=== PATIENT | female | born 1945 | race Caucasian/White ===

== ENCOUNTER 2020-04-10 10:48 | Outpatient (CLI) | payer MEDICARE, OTHER, SELFPAY ==
--- NOTE | ~2020-04-10 | US_ITS ---
EXAMINATION: US carotid duplex BI DATE: 04/10/2020 11:28 INDICATION: Bilateral carotid artery stenosis. TECHNIQUE: Grayscale, color Doppler, and pulsed Doppler images of the cervical carotid arteries were obtained. The degree of vessel stenosis is placed in one of the following categories: normal, <50%, 5 0-69%, >=70% but less than near-occlusion, near-occlusion, or total occlusion. Note that percent sten osis relative to normal distal artery lumen diameter is indirectly measured from velocity measurement s as described by Dixon, et al. Radiology 2003; 229:340-346. COMPARISON: Ultrasound 05/07/2016 FINDINGS: RIGHT: The right common carotid artery (CCA) peak systolic velocity (PSV) is 93 cm/s. The right internal car otid artery (ICA) PSV is 83 cm/s. The right ICA end-diastolic velocity (EDV) is 30 cm/s. The right IC A/CCA PSV ratio is 0.9. Grayscale and color Doppler images yield an estimate of <50% diameter reducti on from plaque in the ICA. There is antegrade flow in the right vertebral artery. LEFT: The left CCA PSV is 78 cm/s. The left ICA PSV is 114 cm/s. The left ICA EDV is 32 cm/s. The left ICA/ CCA PSV ratio is 1.5. Grayscale and color Doppler images yield an estimate of <50% diameter reduction from plaque in the ICA. There is antegrade flow in the left vertebral artery. IMPRESSION: 1. <50% stenosis in the right internal carotid artery. 2. <50% stenosis in the left internal carotid artery. Reviewed, dictated and finalized at location A.
== END 2020-04-10 10:49 | disposition home or self-care (01) ==
PROVIDERS: PCP Internal Medicine; Visit Provider Specialist
DX: I65.23 Occlusion and stenosis of bilateral carotid arteries (principal)
CPT/HCPCS: 93880

== ENCOUNTER 2020-06-07 14:22 | Emergency (ER) | payer MEDICARE, OTHER, SELFPAY ==
--- NOTE | ~2020-06-07 | XR_ITS ---
XR hand RT min 3V 06/07/2020 15:09 Indication: Right hand pain after trauma Procedure: 3 views right hand Comparison: 01/20/2011 Findings: There is moderate soft tissue swelling dorsal to the metacarpals. There is advanced osteoar thritis of the first CMC joint. There is mild-moderate polyarticular osteoarthritis of the interphala ngeal joints as well as the first, second and third MCP joints. No acute fracture or traumatic malali gnment. Impression: 1: No acute fracture. Reviewed, dictated and finalized at location A. Impression: 1: No acute fracture.
[2020-06-07 14:35] VITALS: BP 170/100; PULSE 89; RESP 14; TEMP 36.3; O2SAT 98
--- NOTE | 2020-06-07 14:50 | ED.UPPEXIN ---
HPI - Extremity Injury (Upper) General Chief Complaint: Extremity Injury, Upper Stated Complaint: R hand injury Time Seen by Provider: 06/07/20 14:51 Source: patient and RN notes reviewed Mode of arrival: ambulatory Limitations: no limitations History of Present Illness complaint: injury to: right and hand Onset (ago): minute(s) (20) Other injuries: none Handedness: right Place: home Severity: severe Relieving factors: none Exacerbating factors: none Context: direct blow ( Metal object fell on her hand) Associated symptoms: denies other symptoms Related Data Home Medications Medication Instructions Recorded Confirmed atorvastatin 10 mg PO DAILY 06/07/20 06/07/20 irbesartan 300 mg PO DAILY 06/07/20 06/07/20 levothyroxine 112 mcg PO DAILY 06/07/20 06/07/20 Allergies Allergy/AdvReac Type Severity Reaction Status Date / Time No Known Allergies Allergy Verified 06/07/20 14:40 Review of Systems Review of Systems: All systems reviewed & are unremarkable except as noted in HPI and below PMFSH Past Medical History Medical History (Updated 06/07/20 @ 15:24 by Marcio Gomes MD) Hyperlipidemia Hypertension Hypothyroidism Surgical History Surgical History (Updated 06/07/20 @ 15:18 by Marcio Gomes MD) History of hysterectomy with bilateral oophorectomy Social History Social History (Updated 06/07/20 @ 15:20 by Marcio Gomes MD) Smoking status: Never smoker Alcohol intake: never Substance use: never Exam Const: General: healthy appearing, no acute distress and alert Nutritional Appearance: well nourished and thin Orientation/consciousness: patient oriented x3 HENMT: Head: normal to inspection Ears: external ears normal Eyes: Conjunctivae: conjunctivae normal Pupils: Equal, round and reactive pupils present EOM: EOMs intact bilaterally Neck: Neck: normal visual inspection Resp: Effort & Inspection: normal respiratory effort Auscultation: clear to auscultation bilaterally Cardio: Rate: regular rate Rhythm: regular rhythm GI: GI Palp: Yes Soft to palpation and No Tenderness to palpation present (GI) Auscultation: normal bowel sounds Back/Spine/Pelvis: Cervical Spine: cervical ROM normal Thoracic/Lumbar Spine: thoraco-lumbar ROM normal Skin: General skin exam: normal color Rashes: no rashes Neuro: General: patient oriented x3, moves all extremities and no focal motor deficits Speech: normal speech Gait exam (Neuro): Normal gait present Extrem: General: normal to inspection and no clubbing, cyanosis or edema Psych: Appearance: grossly normal and well kempt Mental Status: mental status grossly normal Affect: normal affect Attitude: cooperative Thought content: Yes Normal thought content present Course Vital Signs Vital signs: Vital Signs Temperature 36.3 C L 06/07/20 14:35 Pulse Rate 89 06/07/20 14:35 Respiratory Rate 14 06/07/20 14:35 Blood Pressure 170/100 H 06/07/20 14:35 Pulse Oximetry 98 06/07/20 14:35 Temperature 36.3 C L 06/07/20 14:35 Pulse Rate 80 06/07/20 15:45 Respiratory Rate 14 06/07/20 15:45 Blood Pressure 195/103 H 06/07/20 15:45 Pulse Oximetry 99 06/07/20 15:45 MDM - Extremity Injury (Upper) Imaging Data Radiologist's impression: Impression: 1: No acute fracture. Reviewed, dictated and finalized at location A. Discharge Plan Discharge Clinical Impression: Contusion of hand, right Qualifiers: Encounter type: initial encounter Qualified Code(s): S60.221A - Contusion of right hand, initial encounter Patient Disposition: Home, Self-Care Condition: Stable Instructions: Contusion in Adults (ED), Hematoma (ED) Additional Instructions: use Tylenol and/or Motrin as needed. Ice and elevate. Follow up with her primary care any worsening symptoms. Prescriptions: No Action atorva
[2020-06-07 15:45] VITALS: BP 195/103; PULSE 80; RESP 14; O2SAT 99
== END 2020-06-07 15:45 | disposition home or self-care (01) ==
PROVIDERS: Emergency Provider Emergency Medicine; PCP Internal Medicine
DX: S60.221A Contusion of right hand, initial encounter (principal); W22.8XXA Striking against or struck by other objects, initial encounter; E78.5 Hyperlipidemia, unspecified; I10 Essential (primary) hypertension; E03.9 Hypothyroidism, unspecified
CPT/HCPCS: 73130; 99282; 99283

== ENCOUNTER 2020-08-26 14:09 | Outpatient (CLI) | payer MEDICARE, SELFPAY ==
[2020-08-26 14:52] LABS: SARS-CoV-2 Ag Positive (Negative)
== END 2020-08-26 14:10 | disposition home or self-care (01) ==
LOC: CHSLAB 14:12
PROVIDERS: PCP Internal Medicine; Visit Provider Internal Medicine
DX: U07.1 COVID-19 (principal)
CPT/HCPCS: 87426

== ENCOUNTER 2022-04-08 13:33 | Outpatient (CLI) | payer MEDICARE, SELFPAY ==
--- NOTE | ~2022-04-08 | MM_ITS ---
EXAMINATION: MM screening kasia BI w senia HISTORY: Screening mammogram TECHNIQUE: Craniocaudal and mediolateral oblique 3-D tomosynthesis images were obtained and synthetic 2-D images were generated. CAD analysis was submitted and interpreted. COMPARISON: 05/07/2016, 12/06/2012 bilateral screening mammogram examinations BREAST PARENCHYMAL COMPOSITION: The breasts are heterogeneously dense, which may obscure small masses . FINDINGS: Approximately 6 mm opacity is noted at the posterior margin of the mid to upper aspect of t he right breast on MLO view; this is not evident on the prior to mammograms, possibly due to differen maurice in positioning. Diagnostic right mammogram is recommended, with ultrasound if required. Otherwise there is no evidence of suspicious mass, calcification, or architectural distortion to sugg est malignancy in either breast. There has been no suspicious interval change. IMPRESSION: 1. 6 mm posterior mid to upper outer right breast circumscribed mass, possibly an intramammary lymph node. This area is not included on prior mammograms. Diagnostic right mammogram is recommended. 2. Diagnostic right mammogram is recommended, with ultrasound if required BI-RADS Category 0: Incomplete: Needs additional imaging evaluation. Reviewed, dictated and finalized at location A. IMPRESSION: 1. 6 mm posterior mid to upper outer right breast circumscribed mass, possibly an intramammary lymph node. This area is not included on prior mammograms. Diag nostic right mammogram is recommended. 2. Diagnostic right mammogram is recommended, with ultrasound if required BI-RADS Category 0: Incomplete: Needs additional imaging evaluation.
--- NOTE | ~2022-04-08 | DEXA_ITS ---
Bone Density Report Name: ALONDRA GIRALDO Age: 76 Sex: Female Ethnicity: White Date of : 1945 Indication: postmenopausal; screening for osteoporosis; hysterectomy; Referring Provider: Bola Betancourt Study: Bone densitometry was performed. Exam Date: April 08, 2022 Accession number: [id number] Bone Density: Region BMD T-score Z-score Classification AP Spine(L1-L4) 0.919 -1.2 1.2 Osteopenia Femoral Neck (Left) 0.660 -1.7 0.4 Osteopenia Total Hip (Left) 0.812 -1.1 0.7 Osteopenia Femoral Neck (Right) 0.655 -1.8 0.3 Osteopenia Total Hip (Right) 0.774 -1.4 0.4 Osteopenia Femoral Neck Mean 0.657 -1.7 0.3 Osteopenia Total Hip Mean 0.793 -1.2 0.5 Osteopenia World Health Organization criteria for BMD impression classify patients as: Normal (T-score at or above -1.0), Osteopenia (T-score between -1.0 and -2.5), or Osteoporosis (T-score at or below -2.5). 10-year Fracture Risk(1): Major Osteoporotic Fracture 11% Hip Fracture 2.6% Reported Risk Factors: [place] (), Neck BMD=0.655, BMI=22.9 (1) FRAX(R) Version 3.08. Fracture probability calculated for an untreated patient. Fracture probability may be lower if the patient has received treatment. Clinical Information Provided by Patient: Has the following medical conditions: Hysterectomy Patient maximum height was 63 Menopause Age: 47 No regular weight bearing exercise Drinks caffeinated beverages Onset of menses at age 12 Number of children 4 Impression: The patient has low bone mass, based on the Right Femoral Neck T-score. Discussion: BONE DENSITY IS LOW AT ONE OR MORE SKELETAL SITES. This patient's lowest T-score is low at one or more skeletal sites. It meets the World Health Organization's (WHO) criteria for ?low bone mass? (T-score between -1.0 and -2.5). The patient's 10-year risk of fracture as calculated by FRAX is less than the threshold where pharmacological therapy is recommended by the National Osteoporosis Foundation (NOF). However, all treatment decisions require clinical judgment and consideration of individual patient factors, including patient preferences, comorbidities, previous drug use, risk factors not captured in the FRAX model (e.g., frailty, falls, vitamin D deficiency, increased bone turnover, interval significant decline in bone density) and possible under or overestimation of fracture risk by FRAX. The patient should follow a healthful lifestyle (good nutrition with adequate calcium and vitamin D, and appropriate weight-bearing exercise). Follow-Up: Consider repeating this study in 2 to 3 years to reassess this patient's status, or sooner if there is some new clinical indication. Reported by: Dr. Silvio Avendano on 04/08/2022 2:13:00 PM.
== END 2022-04-08 13:34 | disposition home or self-care (01) ==
LOC: CHSIMG 13:36
PROVIDERS: PCP Internal Medicine; Visit Provider Internal Medicine
DX: M81.0 Age-related osteoporosis without current pathological fracture (principal); Z12.31 Encounter for screening mammogram for malignant neoplasm of breast
CPT/HCPCS: 77063; 77067; 77080

== ENCOUNTER 2022-04-16 08:57 | Outpatient (CLI) | payer MEDICARE, SELFPAY ==
--- NOTE | ~2022-04-16 | MMUS_ITS ---
EXAMINATION: MM diagnostic kasia RT w senia, US breast RT limited HISTORY: Follow-up right axillary mass. TECHNIQUE: Additional 3-D tomosynthesis images of the right breast were performed and synthetic 2-D i mages were generated. CAD analysis was submitted and interpreted. High resolution Limited right breas t/axillary ultrasound was performed. COMPARISON: Comparison to multiple prior studies sequentially, with oldest reviewed study dated 12/06. BREAST PARENCHYMAL COMPOSITION: The breasts are heterogenously dense, which may obscure small masses FINDINGS: MAMMOGRAPHIC FINDINGS: There are small axillary lymph nodes, best seen on spot MLO view. There are no suspicious masses, katie cifications or architectural distortion to suggest malignancy. ULTRASOUND: Limited right breast/axillary ultrasound: In the right axilla there is a normal-appearing 7 mm lymph node with fatty hilum. At 9:00, 6 cm from the nipple there is a normal-appearing 7 mm intramammary ly mph node. No suspicious masses to suggest malignancy. IMPRESSION: 1. No evidence for malignancy in the right breast. Benign findings. 2. Routine yearly screening mammogram and regular clinical breast examination are recommended. BI-RADS Category 2: Benign finding(s). Reviewed, dictated and finalized at location A. IMPRESSION: 1. No evidence for malignancy in the right breast. Benign findings. 2. Routine yearly screening mammogram and regular clinical breast examination a re recommended. BI-RADS Category 2: Benign finding(s).
== END 2022-04-16 08:58 | disposition home or self-care (01) ==
LOC: CHSIMG 08:59
PROVIDERS: PCP Internal Medicine; Visit Provider Internal Medicine
DX: R92.8 Other abnormal and inconclusive findings on diagnostic imaging of breast (principal)
CPT/HCPCS: 76642; 77061; 77065; G0279

== ENCOUNTER 2022-11-02 00:40 | Day surgery (SDC) | payer MEDICARE, SELFPAY ==
[2022-10-18 11:17] VITALS: BMI 23.0
--- NOTE | 2022-11-01 15:55 | WPDANESEPPF ---
Anes - Initial Pre Proc Eval Procedure: Operation Date: 11/02/22 11:30 Proposed Procedures p Colonoscopy - Rojas Robertson MD Date/Time: 11/01/22 15:55 Surgeon: Rojas Robertson MD Pre Op Diagnosis: change in bowel habits Patient Data Age: 77 Gender: F Height: 1.6 m Weight: 59 kg Allergies Allergy/AdvReac Type Severity Reaction Status Date / Time No Known Allergies Allergy Verified 11/02/22 10:06 Home Medications Medication Instructions Recorded Confirmed Type atorvastatin 10 mg tablet 10 mg PO DAILY 06/07/20 10/18/22 History levothyroxine 112 mcg tablet 112 mcg PO DAILY 06/07/20 10/18/22 History aspirin 81 mg tablet,delayed 81 mg PO DAILY 10/18/22 10/18/22 History release (Adult Low Dose Aspirin) cholecalciferol (vitamin D3) 25 25 mcg PO DAILY 10/18/22 10/18/22 History mcg (1,000 unit) tablet irbesartan 300 1 tablet PO DAILY 10/18/22 10/18/22 History mg-hydrochlorothiazide 12.5 mg tablet Patient hx anesthesia problems: none Family hx anesthesia problems: none Results Review: All pre-operative results and documents have been reviewed as part of the pre-operative evaluation. [facility] Past Medical History Medical History (Updated 11/01/22 @ 15:56 by Ryan Trujillo DO) Hyperlipidemia Hypertension Hypothyroidism Irregular heart beat Surgical History Surgical History (Updated 06/07/20 @ 15:18 by Marcio Gomes MD) History of hysterectomy with bilateral oophorectomy Social History Social History (Updated 06/07/20 @ 15:20 by Marcio Gomes MD) Smoking status: Never smoker Alcohol intake: never Substance use: never Substance use type: does not use Living arrangements: with friend(s) Spiritual care concerns: No Anes - Eval Final PreProcedure Day of Procedure 11/01/22 15:55 Patient weight: normal Heart: regular rate and rhythm Lungs: clear to auscultation and normal air movement Airway: Mallampati scale class II Neurological: alert and oriented Last oral intake: >/= 8 hours ASA classification: II Emergent: no Anesthetic plan: proceed Anesthesia type and monitoring: general GIVS and standard monitoring Results Review: All pre-operative results and documents have been reviewed as part of the pre-operative evaluation. Informed Consent: The patient's anesthetic plan and its attendant risks and benefits were discussed with the patient/family/POA. Questions were solicited and answers provided to the satisfaction of the patient/family/POA.
[2022-11-02 10:08] VITALS: BP 161/90; PULSE 78; RESP 18; TEMP 36.9; O2SAT 97
[2022-11-02] MEDS: LACTATED RINGERS 1,000 ML 150 ML IV CONT (10:22)
--- NOTE | 2022-11-02 10:46 | PM.HPGS ---
History of Present Illness History of Present Illness Consent: Risks, benefits, and alternatives have been discussed and questions answered. Patient agrees to proceed with procedure. Chief complaint: change in bowel habits Narrative: Mel Rubin is a 77 year old female with more mucus in stool than usual for 2 months, had colonoscopy but over 10 years ago Review of Systems Constitutional: Constitutional: Denies headache(s) and Denies weakness Eyes: Eyes: Denies blurry vision ENT: Reports Normal hearing present, Denies headache(s) and Denies neck pain Cardiovascular: Cardiovascular: Denies chest pain and Denies dyspnea Respiratory: Respiratory: Denies dyspnea Gastrointestinal: Gastrointestinal: Reports no additional gastrointestinal complaints Genitourinary: Genitourinary: Denies dysuria Musculoskeletal: Musculoskeletal: Denies neck pain Integumentary/Breasts: Skin/Breast: Denies dry skin Neurologic: Reports Normal hearing present, Denies headache(s) and Denies weakness Psychiatric: Psychiatric: Denies anxiety Endocrine: Endocrine: Denies change in body appearance Hematologic/Lymphatic: Hematologic/Lymphatic: Denies easy bleeding Allergic/Immunologic: Allergic/Immunologic: Denies urticaria PMFSH Past Medical History Medical History (Updated 11/02/22 @ 10:46 by Rojas Robertson MD) Hyperlipidemia Hypertension Hypothyroidism Irregular heart beat Mucus in stool Surgical History Surgical History (Updated 06/07/20 @ 15:18 by Marcio Gomes MD) History of hysterectomy with bilateral oophorectomy Social History Social History (Updated 06/07/20 @ 15:20 by Marcio Gomes MD) Smoking status: Never smoker Alcohol intake: never Substance use: never Substance use type: does not use Living arrangements: with friend(s) Spiritual care concerns: No Meds Home Medications and Allergies Home Medications Medication Instructions Recorded Confirmed Type atorvastatin 10 mg tablet 10 mg PO DAILY 06/07/20 10/18/22 History levothyroxine 112 mcg tablet 112 mcg PO DAILY 06/07/20 10/18/22 History aspirin 81 mg tablet,delayed 81 mg PO DAILY 10/18/22 10/18/22 History release (Adult Low Dose Aspirin) cholecalciferol (vitamin D3) 25 25 mcg PO DAILY 10/18/22 10/18/22 History mcg (1,000 unit) tablet irbesartan 300 1 tablet PO DAILY 10/18/22 10/18/22 History mg-hydrochlorothiazide 12.5 mg tablet Allergies Allergy/AdvReac Type Severity Reaction Status Date / Time No Known Allergies Allergy Verified 11/02/22 10:06 Vital Signs Vital Signs - 24 hr 11/02/22 10:08 Temperature 98.4 F Pulse Rate 78 Respiratory Rate 18 Blood Pressure 161/90 H Pulse Oximetry 97 Oxygen Delivery Room Air Exam Const: General: comfortable and no acute distress HENMT: Face/Nose/Sinus: Normal nares present Eyes: General: appearance normal, both eyes and all related structures Neck: Neck: no JVD Resp: Auscultation: clear to auscultation bilaterally Cardio: Rate: regular rate Rhythm: regular rhythm GI: Inspection: non-distended GI Palp: Yes Soft to palpation Skin: General skin exam: normal color Neuro: General: gait normal Speech: normal speech Extrem: General: normal to inspection Psych: Mental Status: mental status grossly normal Assessment and Plan Assessment and plan (1) Mucus in stool: Code(s): R19.5 - Other fecal abnormalities Status: Acute Assessment and Plan: colonoscopy
[2022-11-02 11:02] VITALS: BP 121/63; PULSE 83; RESP 15; O2SAT 98
[2022-11-02 11:12] VITALS: BP 117/65; PULSE 83; RESP 15; O2SAT 98
[2022-11-02 11:22] VITALS: BP 137/99; PULSE 85; RESP 17; O2SAT 100
== END 2022-11-02 11:26 | disposition home or self-care (01) ==
PROVIDERS: PCP Internal Medicine; Visit Provider Internal Medicine Gastroenterology
PROC: 0DJD8ZZ Inspection of Lower Intestinal Tract, Via Natural or Artificial Opening Endoscopic (ICD-10-PCS; CPT 45378; principal; 2022-11-02 11:30)
DX: Z12.11 Encounter for screening for malignant neoplasm of colon (principal); K57.30 Diverticulosis of large intestine without perforation or abscess without bleeding; K62.3 Rectal prolapse; K64.4 Residual hemorrhoidal skin tags; R19.5 Other fecal abnormalities; I10 Essential (primary) hypertension; E78.5 Hyperlipidemia, unspecified; E03.9 Hypothyroidism, unspecified; Z79.82 Long term (current) use of aspirin
CPT/HCPCS: 45380; 88305; J2704; J7120

== ENCOUNTER 2023-07-15 10:00 | Outpatient (CLI) | payer MEDICARE, OTHER, SELFPAY ==
[2023-07-15 10:16] LABS: Basophils Absolute Auto 0.07 K/mm3 (0.00-0.10); Eosinophils Absolute Auto 0.49 K/mm3 (0.02-0.50); Eosinophils Percent Auto 7.3 % (1.0-6.0); Hemoglobin 13.6 g/dL (11.7-13.8); Immature Granulocyte Absolute 0.02 K/mm3 (0.00-0.00); Immature Granulocyte Percent A 0.3 % (0.0-0.0); Lymphocytes Absolute Auto 2.75 K/mm3 (1.10-4.50); Lymphocytes Percent Auto 40.7 % (18.0-42.0); Mean Corpuscular HGB Conc 33.2 g/dL (32.0-36.0); Mean Corpuscular Hemoglobin 31.7 pg (27.0-31.0); Mean Corpuscular Volume 95.6 fL (78.0-102.0); Monocytes Absolute Auto 0.59 K/mm3 (0.10-0.90); Monocytes Percent Auto 8.7 % (2.0-11.0); Neutrophils Absolute Auto 2.8 K/mm3 (1.7-7.2); Platelet Count Result 290 K/mm3 (150-420); Red Blood Count 4.29 M/mm3 (4.20-5.40); Red Cell Distribution Width 12.9 % (11.6-14.4); White Blood Count 6.8 K/mm3 (4.8-10.8)
[2023-07-15 10:46] LABS: Alanine Aminotransferase 20 U/L (14-59); Albumin Level 3.7 g/dL (3.4-5.0); Alkaline Phosphatase 80 U/L (46-116); Anion Gap 9 mmol/L (8-16); Aspartate Amino Transferase 18 U/L (15-37); Bilirubin,Total 0.6 mg/dL (0.00-1.00); Blood Urea Nitrogen 19 mg/dL (7-18); Calcium 9.6 mg/dL (8.5-10.1); Carbon Dioxide 31 mmol/L (21-32); Chloride 102 mmol/L (98-108); Creatine Kinase 87 U/L (26-192); Estimated Glomerular Filt Rate > 60; Glucose 75 mg/dL (70-99); Osmolality Calculated 295 mOsm/kg (285-295); Potassium 3.6 mmol/L (3.5-5.1); Sodium 142 mmol/L (136-145)
[2023-07-15 10:55] LABS: CRP < 0.5 mg/dL (0.0-0.9)
== END 2023-07-15 10:01 | disposition home or self-care (01) ==
LOC: CHSLAB 10:05
PROVIDERS: PCP Internal Medicine; Visit Provider Internal Medicine
DX: R07.9 Chest pain, unspecified (principal)
CPT/HCPCS: 36415; 80053; 82550; 82553; 84484; 85025; 85380; 86140

== ENCOUNTER 2025-05-06 08:19 | Outpatient (CLI) | payer MEDICARE, SELFPAY ==
--- NOTE | ~2025-05-06 | XR_ITS ---
XR lumbar spine 2-3V 05/06/2025 08:48 Indication: Right hip pain Procedure: 3 views lumbar spine Comparison: 01/20/2011 Findings: There is significant disc height loss at L3-4 and L5-S1. Vertebral body heights are maintained. No acute fracture or traumatic malalignment. No evidence for spondylolisthesis. There is mild levocurvature of the lumbar spine. No acute fracture. Impression: 1: Progression of degenerative disc disease primarily involving L3-4 and L5-S1, consistent with moderate lumbar spondylosis. Reviewed, dictated and finalized at location O. Impression: 1: Progression of degenerative disc disease primarily involving L3-4 and L5-S1, consistent with moderate lumbar spondylosis.
--- NOTE | ~2025-05-06 | XR_ITS ---
XR hip RT min 2V 05/06/2025 08:48 Indication: Right hip pain Procedure: 2 views right hip Comparison: No prior studies for comparison. Findings: No fracture, subluxation or dislocation. There is mild osteoarthritis of the right hip. No soft tissue abnormality. No foreign bodies. Impression: 1: Mild osteoarthritis of the right hip. Reviewed, dictated and finalized at location O. Impression: 1: Mild osteoarthritis of the right hip.
== END 2025-05-06 08:20 | disposition home or self-care (01) ==
PROVIDERS: PCP Internal Medicine; Visit Provider Internal Medicine
DX: M25.551 Pain in right hip (principal); M85.88 Other specified disorders of bone density and structure, other site; M51.369 Other intervertebral disc degeneration, lumbar region without mention of lumbar back pain or lower extremity pain; M16.11 Unilateral primary osteoarthritis, right hip
CPT/HCPCS: 72100; 73502

== ENCOUNTER 2025-05-14 09:15 | Outpatient (CLI) | payer MEDICARE, SELFPAY ==
--- NOTE | ~2025-05-14 | DEXA_ITS ---
Bone Density Report Name: ALONDRA GIRALDO Age: 79 Sex: Female Ethnicity: White Date of : 1945 Indication: osteopenia; rheumatoid arthritis; Referring Provider: Bola Betancourt Study: Bone densitometry was performed. Exam Date: May 14, 2025 Accession number: [id number] Bone Density: Region BMD T-score Z-score Classification AP Spine(L1, L2, L3) 0.836 -1.7 0.8 Osteopenia Femoral Neck (Left) 0.646 -1.8 0.4 Osteopenia Total Hip (Left) 0.862 -0.7 1.3 Normal Femoral Neck (Right) 0.624 -2.0 0.2 Osteopenia Total Hip (Right) 0.843 -0.8 1.1 Normal Femoral Neck Mean 0.635 -1.9 0.3 Osteopenia Total Hip Mean 0.852 -0.7 1.2 Normal World Health Organization criteria for BMD impression classify patients as: Normal (T-score at or above -1.0), Osteopenia (T-score between -1.0 and -2.5), or Osteoporosis (T-score at or below -2.5). 10-year Fracture Risk(1): Major Osteoporotic Fracture 18% Hip Fracture 5.4% Reported Risk Factors: [place] (), Neck BMD=0.624, BMI=23.6, rheumatoid arthritis (1) FRAX(R) Version 3.08. Fracture probability calculated for an untreated patient. Fracture probability may be lower if the patient has received treatment. Previous Exams: Region Exam Age BMD T-score BMD Change BMD Change Date g/cm2 vs Baseline vs Previous AP Spine (L1-L3) 05/14/2025 79 0.836 -1.7 -0.057 (-6.4%) -0.057 (-6.4%) 04/08/2022 76 0.894 -1.1 Total Hip(Left) 05/14/2025 79 0.862 -0.7 0.050 (6.2%)* 0.050 (6.2%)* 04/08/2022 76 0.812 -1.1 Total Hip(Right) 05/14/2025 79 0.843 -0.8 0.069 (8.9%)* 0.069 (8.9%)* 04/08/2022 76 0.774 -1.4 *Denotes significance at 95% confidence level, LSC for AP Spine = 0.022 g/cm2, LSC for Total Hip = 0.027 g/cm2 Clinical Information Provided by Patient: Has rheumatoid arthritis Has used the following medications: Vitamin D Patient maximum height was 63 Menopause Age: 47 No regular weight bearing exercise Drinks caffeinated beverages Onset of menses at age 12 Number of children 4 Impression: The patient has low bone mass, based on the Right Femoral Neck T-score. The BMD for the AP Spine (L1-L3) decreased, changing by -6.4% since the last DXA exam. Discussion: BONE DENSITY IS LOW AT ONE OR MORE SKELETAL SITES. This patient's lowest T-score is low at one or more skeletal sites. It meets the World Health Organization's (WHO) criteria for ?low bone mass? (T-score between -1.0 and -2.5). The patient's 10-year risk of fracture as calculated by FRAX is less than the threshold where pharmacological therapy is recommended by the National Osteoporosis Foundation (NOF). However, all treatment decisions require clinical judgment and consideration of individual patient factors, including patient preferences, comorbidities, previous drug use, risk factors not captured in the FRAX model (e.g., frailty, falls, vitamin D deficiency, increased bone turnover, interval significant decline in bone density) and possible under or overestimation of fracture risk by FRAX. The patient should follow a healthful lifestyle (good nutrition with adequate calcium and vitamin D, and appropriate weight-bearing exercise). Follow-Up: Consider repeating this study in 2 years to reassess this patient's status, or sooner if there is some new clinical indication. Reported by: ASH on 05/24/2025 8:03:00 AM. Reviewed, dictated and finalized at location Q.
--- OUTSIDE RECORDS SUMMARY | 2025-05-14 09:34 | XMS_ITS | Clinical Summary ---
Author Organization [facility] Address [address] [place] [id number] Care Team Providers Care Field Recruiter Name Role Phone Bola Betancourt MD Primary Care Provider Galileo Oates MD Unavailable [phone] Allergies No known active allergies Medications Levothyroxine Sodium 112 MCG Cap Take 112 mcg by mouth daily. 05/09/2014 Active raloxifene 60 MG tablet 05/21/2016 Active irbesartan 150 MG tablet Take 150 mg by mouth daily. 03/03/2020 Active atorvastatin 10 MG tablet Take 10 mg by mouth daily. 03/03/2020 Active Active Problems Problem Noted Date Diagnosed Date Mild carotid artery disease 07/22/2017 Syncope 10/09/2016 Chronic pain Osteoarthritis HLD (hyperlipidemia) Hypothyroidism HTN (hypertension) LVH (left ventricular hypertrophy) MR (mitral regurgitation) TR (tricuspid regurgitation) Insomnia SVT (supraventricular tachycardia) ([facility]) Overview (05/26/2016): s/p rfa 2000 Resolved Problems Problem Noted Date Diagnosed Date Resolved Date Hypersomnolence 06/11/2016 CVD (cardiovascular disease) 06/11/2016 Family History Medical History Relation Comments Heart Attack Brother Heart Attack Father CHF Mother Hypertension Mother Cancer Sister lung Relation Status Comments Brother Father Mother Sister Social History Tobacco Use Types Packs/Day Years Used Date Smoking Tobacco: Never Smokeless Tobacco: Never Comments Unknown Sex and Gender Information Value Date Recorded Sex Assigned at Not on file Legal Sex Female 10:44 PM CDT Gender Identity Not on file Sexual Orientation Not on file Occupation Industry Job Start Date Job End Date Not on file Not on file Not on file Not on file Last Filed Vital Signs Vital Sign Reading Time Taken Comments Blood Pressure 146/84 04/10/2020 12:01 PM CDT Pulse 62 04/10/2020 12:01 PM CDT Temperature - - Respiratory Rate 20 04/10/2020 12:01 PM CDT Oxygen Saturation 98% 04/10/2020 12:01 PM CDT Inhaled Oxygen Concentration - - Weight 55.3 kg (122 lb) 04/10/2020 12:01 PM CDT Height 160 cm (5' 3) 04/10/2020 12:01 PM CDT Body Mass Index 21.61 04/10/2020 12:01 PM CDT Plan of Treatment Health Maintenance Due Date Last Done Comments Hepatitis C 1965 DTaP, Tdap and Td Vaccines ( 1 - Tdap) 1966 Zoster Vaccines (1 of 2) 1997 AAA SCREENING 2012 Annual Medicare Wellness Visit 2012 Dexa Scan (General) 2012 Pneumococcal Vaccine: 50+ Ye ars (2 of 2 - PPSV23) 05/21/2016 03/26/2016 RSV Immunization or 60+ Years (1 - 1-dose 75+ series) 2022 COVID-19 Vaccine ( - 2023-2 5 season) 2024 Meningococcal B Vaccine Aged Out No l onger eligible based on patient's age to complete this topic Meningococcal Vaccine Aged Out No jeff mary eligible based on patient's age to complete this topic RSV Immunizations Under 20 Months Aged Out No longer eligible based on [place]'s [id number] MEDICARE [facility] [employer] Care Teams Field Recruiter Relationship Specialty Start Date End Date Bola Betancourt MD [address] [place] [id number] PCP - General INTERNAL MEDICINE 06/09/16 Galileo Oates MD [address] [place] [address] [employer] Cloth CARDIOVASCULAR DISEASE 06/09/16
== END 2025-05-14 09:16 | disposition home or self-care (01) ==
PROVIDERS: PCP Internal Medicine; Visit Provider Internal Medicine
DX: Z78.0 Asymptomatic menopausal state (principal); M85.89 Other specified disorders of bone density and structure, multiple sites
CPT/HCPCS: 77080